=== PATIENT | female | born 1950 | race African-American/Black ===

== ENCOUNTER 2019-07-11 12:24 | Emergency (ER) | payer OTHER ==
--- NOTE | 2019-07-11 13:53 | ER Document Report ---
ED Medical Screen (RME) - General Chief Complaint: Abdominal Pain Stated Complaint: ABDOMINAL PAIN Time Seen by Provider: 07/11/19 13:51 Notes: 69-year-old female presents with loose stools and abdominal pain since May 12. Patient states she has not been seen for this yet. Patient states the pain is worse when she eats something and is relieved when she has a bowel movement. Patient denies any recent antibiotic use or travel overseas. Patient denies any blood in her stools. Abdomen soft nontender. Patient denies any fevers, nausea/vomiting, chest pain, shortness of breath. I have greeted and performed a rapid initial assessment of this patient. A comprehensive ED assessment and evaluation of the patient, analysis of test results and completion of the medical decision making process with be conducted by additional ED providers.
[2019-07-11 15:20] LABS: ABSOLUTE EOSINOPHILS # (AUTO) 0.1 10^3/uL (0.0-0.6); ABSOLUTE LYMPHOCYTES (AUTO) 1.2 10^3/uL (0.5-4.7); ABSOLUTE MONOCYTES (AUTO) 0.8 10^3/uL (0.1-1.4); ABSOLUTE NEUT (AUTO) 4.2 10^3/uL (1.7-8.2); BASOPHILS % (AUTO) 0.7 % (0-2); EOSINOPHILS % (AUTO) 1.7 % (0-6); HEMATOCRIT 40.5 % (36.0-47.0); HEMOGLOBIN 13.7 g/dL (12.0-15.5); LYMPHOCYTES % (AUTO) 18.7 % (13-45); MEAN CORPUSCULAR HEMOGLOBIN 26.3 pg (27.0-33.4); MEAN CORPUSCULAR HGB CONC 33.8 g/dL (32.0-36.0); MEAN CORPUSCULAR VOLUME 78 fl (80-97); MONOCYTES % (AUTO) 12.1 % (3-13); PLATELET COUNT 192 10^3/uL (150-450); RED BLOOD COUNT 5.22 10^6/uL (3.72-5.28); RED CELL DISTRIBUTION WIDTH 14.7 % (11.5-14.0); SEGMENTED NEUTROPHILS % (AUTO) 66.8 % (42-78); TOTAL CELLS COUNTED % (AUTO) 100 %; WHITE BLOOD COUNT 6.4 10^3/uL (4.0-10.5)
[2019-07-11 15:33] LABS: ALKALINE PHOSPHATASE 56 U/L (38-126); ANION GAP 9 (5-19); ASPARTATE AMINO TRANSFERASE 32 U/L (14-36); BILIRUBIN,DIRECT 0.2 mg/dL (0.0-0.4); BILIRUBIN,TOTAL 0.3 mg/dL (0.2-1.3); BLOOD UREA NITROGEN 11 mg/dL (7-20); CALCIUM 9.4 mg/dL (8.4-10.2); CARBON DIOXIDE 27 mmol/L (22-30); CHLORIDE 105 mmol/L (98-107); GLUCOSE 130 mg/dL (75-110); POTASSIUM 3.6 mmol/L (3.6-5.0); TOTAL PROTEIN 7.2 g/dL (6.3-8.2)
--- NOTE | 2019-07-11 16:05 | ER Document Report ---
ED GI/ - General Chief Complaint: Abdominal Pain Stated Complaint: ABDOMINAL PAIN Time Seen by Provider: 07/11/19 13:51 Primary Care Provider: POLA,ROBYN [Primary Care Provider] - Follow up as needed Notes: HPI: Patient is a 69-year-old female with past medical history as recorded who presents today stating starting May 12 she has had some epigastric intermittent "fullness". She states it is worse with food. She denies any radiation to the back of the chest. She denies any lower abdominal pain or dysuria. Patient states 1 every 3 days she has an episode of diarrhea. She denies any darkness or blackness to the stool. She denies any nausea, vomiting, fevers, cough, shortness of breath. No other aggravating relieving factors. ROS: See HPI All other review of systems reviewed and otherwise negative Reviewed vital signs and nursing note as charted by RN. PHYSICAL EXAM: CONSTITUTIONAL: Alert and oriented and responds appropriately to questions. Well-appearing; well-nourished HEAD: Normocephalic; atraumatic EYES: Sclerae non-icteric ENT: Normal nose; no rhinorrhea; moist mucous membranes; pharynx without lesions noted NECK: Supple without meningismus; non-tender; no cervical lymphadenopathy, no masses CARD: Regular rate and rhythm; no murmurs; symmetric distal pulses RESP: Normal chest excursion without splinting or tachypnea; breath sounds clear and equal bilaterally ABD/GI: Normal bowel sounds; non-distended; mild tenderness to the epigastric region without rebound or guarding. Negative Ambrose sign. No lower abdominal tenderness or swelling. No abdominal bruits BACK: The back appears normal and is non-tender to palpation EXT: Normal ROM in all joints; non-tender to palpation; no edema SKIN: No acute lesions noted NEURO: CN 2-12 intact; 5/5 bilateral upper and lower extremity strength with sensation intact to light touch PSYCH: The patient's mood and manner are appropriate. Grooming and personal hygiene are appropriate. TRAVEL OUTSIDE OF THE [place] IN LAST 30 DAYS: No - Related Data Allergies/Adverse Reactions: seafood Allergy (Uncoded 07/11/19 19:20) Home Medications: Novalog, Lantus, Janovia, Glipiside, Benazapril, Amalodipine Past Medical History - Social History Smoking Status: Former Smoker Family History: Reviewed & Not Pertinent Patient has suicidal ideation: No Patient has homicidal ideation: No - Past Medical History Cardiac Medical History: Reports: Hx Hypercholesterolemia, Hx Hypertension Endocrine Medical History: Reports: Hx Diabetes Mellitus Type 2 Past Surgical History: Reports: Hx Breast Surgery - Left breast Lymphectomy, Masectomy, Hx Section, Hx Mastectomy - left breast Physical Exam - Vital signs Vitals: Temp Pulse Resp BP Pulse Ox 98.1 F 64 16 154/86 H 97 07/11/19 12:55 07/11/19 12:55 07/11/19 12:55 07/11/19 12:55 07/11/19 12:55 Course - Re-evaluation Re-evalutation: EKG shows heart of 54, normal sinus rhythm, right bundle branch block with left ventricular hypertrophy. Inverted T waves in leads III, aVF, V3 through V6 Given the above history and physical we will proceed with basic labs, liver panel and lipase, and given the upper abdominal nature of this pain for such a prolonged period of time associated with food, we will proceed with an ultrasound of the gallbladder. Given the patient's age I will order an EKG to evaluate for cardiac etiology. 07/11/19 16:02 Labs as recorded. We are waiting ultrasound 07/11/19 18:13 Ultrasound as recorded. No change in exam. Patient is demanding some juice as she states her glucose will drop. I have explained to the patient that we want to keep the patient without food or water until we know the etiology of the patient's pain. She is demanding juice. 07/11/19 19:[address] scan of the abdomen and pelvis as recorded. Patient is pain-free sitting up reading a book. I have explained to the patient that I would request that the patient possibly be admitted for further evaluation with possibly urology consultation. I have offered transfer to [facility] given that the patient does not have a urologist. I am unsure the etiology of this hydronephrosis. No obvious strictures. Lipase is slightly elevated. Patient has minimal indication for urinary tract infection but given the hydronephrosis we will treat this. Urine culture has been sent. Patient is refusing admission or transfer at this time. She states she wants to follow-up with her primary care physician. She understands the seriousness of the condition. She understands the importance of strict follow-up. She understands importance of returning with any worsening pain or vomiting. Patient states she has an appointment tomorrow with her primary care physician. I have provided the information so that she can tell her provider. She understands the importance of follow-up and she understands that we are happy to have her return at any time that she would like for further evaluation. - Vital Signs Vital signs: Temp Pulse Resp BP Pulse Ox 98.1 F 64 16 154/86 H 97 07/11/19 12:55 07/11/19 12:55 07/11/19 12:55 07/11/19 12:55 07/11/19 12:55 - Laboratory Result Diagrams: 07/11/19 14:50 07/11/19 14:50 Laboratory results interpreted by me: 07/11/19 07/11/19 07/11/19 14:50 14:50 15:35 MCV 78 L MCH 26.3 L RDW 14.7 H Glucose 130 H Lipase 339.1 H Leukocyte Esterase Rfl TRACE H Discharge - Discharge Clinical Impression: Hydronephrosis determined by ultrasound, Elevated lipase UTI (urinary tract infection) Qualifiers: Urinary tract infection type: site unspecified Hematuria presence: without hematuria Qualified Code(s): N39.0 - Urinary tract infection, site not specified Condition: Good Disposition: HOME, SELF-CARE Additional Instructions: Come back immediately for any increased pain, change in location or quality of pain, fevers or vomiting, or any time that she would like for further treatment and assessment. It is important that you follow-up with the primary care physician for your slightly elevated lipase, your urine analysis and urine culture results, and the dilated ureter and kidney on the right side. I have provided the CT scan reports to you. Please take the antibiotics as prescribed and I would also recommend you taking Prilosec once daily until seen and reassess. Prescriptions: RX: Cephalexin Monohydrate [Keflex 500 mg Capsule] 500 mg PO TID 10 Days #30 capsule Referrals: [facility] [Primary [facility]] - Follow up as needed
[2019-07-11 16:11] LABS: APPEARANCE,URINE CLEAR; BILIRUBIN,URINE NEGATIVE (NEGATIVE); COLOR,URINE YELLOW; GLUCOSE, URINE NEGATIVE (NEGATIVE); KETONES,URINE NEGATIVE (NEGATIVE); PROTEIN,URINE NEGATIVE (NEGATIVE); URINE SPECIFIC GRAVITY 1.015; UROBILINOGEN,URINE NEGATIVE mg/dL (<2.0)
--- NOTE | 2019-07-11 18:11 | RADIOLOGY REPORT (SQ) ---
EXAM DESCRIPTION: U/S ABDOMEN LIMITED W/O DOP COMPLETED DATE/TIME: 07/11/2019 5:36 pm REASON FOR STUDY: 21; epigastric pain worse with food COMPARISON: None. TECHNIQUE: Dynamic and static grayscale images acquired of the abdomen and recorded on PACS. Additio nal selected color Doppler and spectral images recorded. LIMITATIONS: None. FINDINGS: PANCREAS: No masses. Visualized pancreatic duct normal caliber. LIVER: No masses. Echotexture increased consistent with fatty infiltration. LIVER VASCULATURE: Normal directional flow of the main portal vein and hepatic veins. GALLBLADDER: No stones. Normal wall thickness. No pericholecystic fluid. ULTRASOUND-DETECTED LOMLEI'S SIGN: Negative. INTRAHEPATIC DUCTS AND COMMON DUCT: CBD and intrahepatic ducts normal caliber. No filling defects. INFERIOR VENA CAVA: Normal flow. AORTA: No aneurysm identified. RIGHT KIDNEY: Normal size. Normal echogenicity. No solid or suspicious masses. Mild -moderate right hydronephrosis. No calcifications. PERITONEAL AND RIGHT PLEURAL SPACE: No ascites or effusions. OTHER: No other significant findings. IMPRESSION: Mild -moderate right hydronephrosis. Fatty infiltration of the liver. No acute inflam matory changes of the gallbladder. TECHNICAL DOCUMENTATION: JOB ID: [id number] [place]-72 2010 [employer]- All Rights Reserved Reading location - IP/workstation name: [email or web address]
--- NOTE | 2019-07-11 19:15 | RADIOLOGY REPORT (SQ) ---
EXAM DESCRIPTION: CT ABD/PELVIS NO ORAL OR IV COMPLETED DATE/TIME: 07/11/2019 6:41 pm REASON FOR STUDY: 21; abdominal pain; hydro on U/S COMPARISON: Ultrasound TECHNIQUE: CT scan of the abdomen and pelvis performed without intravenous or oral contrast. Images reviewed with lung, soft tissue, and bone windows. Reconstructed coronal and sagittal MPR images revi ewed. All images stored on PACS. All CT scanners at this facility use dose modulation, iterative reconstruction, and/or weight based d osing when appropriate to reduce radiation dose to as low as reasonably achievable (ALARA). [facility]: Dose Right [facility]: CareDose [facility]: Dose Right [facility]: Teradose 4D [facility]: [employer] RADIATION DOSE: CT Rad equipment meets quality standard of care and radiation dose reduction techniq ues were employed. CTDIvol: 7.1 mGy. DLP: 364 mGy-cm.mGy. LIMITATIONS: None. FINDINGS: LOWER CHEST: No significant findings. No nodules or infiltrates. NON-CONTRASTED LIVER, SPLEEN, ADRENALS: Evaluation limited by lack of IV contrast. No identified sign ificant masses. PANCREAS: No masses. No peripancreatic inflammatory changes. GALLBLADDER: No identified stones by CT criteria. No inflammatory changes to suggest cholecystitis. RIGHT KIDNEY AND URETER: No suspicious masses. Assessment limited by lack of IV contrast. No signif icant calcifications. Mild hydronephrosis hydroureter. Etiology not determined. LEFT KIDNEY AND URETER: No suspicious masses. Assessment limited by lack of IV contrast. No signifi cant calcifications. No hydronephrosis or hydroureter. AORTA AND RETROPERITONEUM: No aneurysm. No retroperitoneal masses or adenopathy. BOWEL AND PERITONEAL CAVITY: No obvious masses or inflammatory changes. No free fluid. APPENDIX: Normal. PELVIS, BLADDER, AND ABDOMINAL WALL:Multiple calcifications in uterus likely fibroids. Bladder unrem arkable. Periumbilical hernia containing in an nonobstructive bowel loop. BONES: No significant findings. OTHER: No other significant finding. IMPRESSION: Mild hydronephrosis and hydroureter on the right without determined etiology. Periumbilical hernia containing and nonobstructed bowel loop. COMMENT: Quality ID # 436: Final reports with documentation of one or more dose reduction techniques (e.g., Automated exposure control, adjustment of the mA and/or kV according to patient size, use of iterative reconstruction technique) TECHNICAL DOCUMENTATION: JOB ID: [id number] 2010 [employer]- All Rights Reserved Reading location - IP/workstation name: [email or web address]
[2019-07-11] MEDS ORDERED: CEPHALEXIN 500 MG CAPSULE PO ONE (19:16)
[2019-07-11] MEDS ORDERED: MAG HYDROX/AL HYDROX/SIMETH SUSP 30 ML UDCUP PO ONE (19:28)
[2019-07-11] MEDS ORDERED: METOCLOPRAMIDE HCL ORAL SOLN 10 MG/10 ML UDCUP PO ONE (19:28)
[2019-07-11] MEDS ORDERED: LIDOCAINE 2% VISCOUS SOLN 15 ML UDCUP PO ONE (19:28)
[2019-07-11 19:42] VITALS: BP 198/77
--- NOTE | 2019-07-12 07:12 | EKG REPORT ---
SEVERITY:- ABNORMAL ECG - SINUS RHYTHM RIGHT BUNDLE BRANCH BLOCK LEFT VENTRICULAR HYPERTROPHY : Confirmed by: Santo Rowell MD 12-Jul-2019 07:11:39
== END 2019-07-11 19:43 | disposition home or self-care (01) ==
LOC: ER 12:24
DX: N39.0 Urinary tract infection, site not specified (principal); N13.30 Unspecified hydronephrosis; R79.89 Other specified abnormal findings of blood chemistry; R10.13 Epigastric pain; R19.7 Diarrhea, unspecified; E78.00 Pure hypercholesterolemia, unspecified; I10 Essential (primary) hypertension; E11.9 Type 2 diabetes mellitus without complications
CPT/HCPCS: 93005; 99284; 36415; 87086; 82962; 83690; 85025; 87088; 80053; 81001; 87186; 76705; 74176; 93010; J3490

== ENCOUNTER → 2020-01-24 | Outpatient (CLI) | payer OTHER ==
--- NOTE | 2020-01-25 10:42 | RADIOLOGY REPORT (SQ) ---
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 TECHNIQUE: Blood glucose level was verified. Above dose of FDG was injected intravenously. 2-D seg mented attenuation correction images were obtained from the base of the skull to the midthighs. Nonc ontrast CT images were obtained for attenuation correction and fusion with emission images. CT image s were performed without oral or intravenous contrast and are not sensitive for parenchymal lesions. A series of overlapping emission PET images were obtained. Images reviewed and manipulated at [facility] work station by the radiologist. Images stored on PACS. LIMITATIONS: None. FINDINGS: HEAD AND NECK: There is uptake in the right lobe of the thyroid gland. CT images demonstr ate a hypoattenuating nodule. SUV is 3.0. Recommend correlation with ultrasound. CHEST: No areas of abnormal metabolic activity in the chest. ABDOMEN AND PELVIS: No areas of abnormal metabolic activity in the abdomen or pelvis. Expected physi ologic activity is present in the genitourinary system and bowel. PROXIMAL LOWER EXTREMITIES: No areas of abnormal metabolic activity in the soft tissues of the lower extremities. BONES: Increased uptake in the right posterolateral 6th rib. CT images demonstrate sclerotic changes . Findings are suspicious for metastatic disease. SUV is 2.7. ADDITIONAL CT FINDINGS: Prior left mastectomy. Moderate stool throughout the colon. OTHER: No other significant findings. IMPRESSION: 1. Abnormal uptake in the right lobe of the thyroid gland. CT images demonstrate a hypo attenuating nodule. SUV is 3.0. Correlation with ultrasound is recommended. 2. Linear increased metabolic activity in the 6th right posterolateral rib. SUV is 2.7. Bony metas tatic disease is suspected. TECHNICAL DOCUMENTATION: JOB ID: [id number] 2010 [employer]- All Rights Reserved Reading location - IP/workstation name: [email or web address]
== END ==
LOC: RAD 10:19
PROVIDERS: ATTEND Internal Medicine
DX: C50.412 Malignant neoplasm of upper-outer quadrant of left female breast (principal)
CPT/HCPCS: 78815; A9552

== ENCOUNTER → 2020-06-08 | Outpatient (CLI) | payer OTHER ==
--- NOTE | 2020-06-08 10:17 | RADIOLOGY REPORT (SQ) ---
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 Patient was gi caren oral contrast. Images reviewed with lung, soft tissue, and bone windows. Reconstructed coronal an d sagittal MPR images reviewed. All images stored on PACS. All CT scanners at this facility use dose modulation, iterative reconstruction, and/or weight based d osing when appropriate to reduce radiation dose to as low as reasonably achievable (ALARA). [facility]: Dose Right [facility]: CareDose [facility]: Dose Right [facility]: Teradose 4D [facility]: Smart [employer] RADIATION DOSE: CT Rad equipment meets quality standard of care and radiation dose reduction techniq ues were employed. CTDIvol: 4.6 - 6.2 mGy. DLP: 444 mGy-cm.mGy. LIMITATIONS: None. FINDINGS: LOWER CHEST: See separate report of the CT of the chest. NON-CONTRASTED LIVER, SPLEEN, ADRENALS: Evaluation limited by lack of IV contrast. No identified sign ificant masses. PANCREAS: No masses. No peripancreatic inflammatory changes. GALLBLADDER: No identified stones by CT criteria. No inflammatory changes to suggest cholecystitis. RIGHT KIDNEY AND URETER: No suspicious masses. Assessment limited by lack of IV contrast. No signif icant calcifications. Decreased fullness of the renal collecting system from prior. No hydroureter onephrosis. LEFT KIDNEY AND URETER: No suspicious masses. Assessment limited by lack of IV contrast. No signifi cant calcifications. No hydronephrosis or hydroureter. AORTA AND RETROPERITONEUM: Aortoiliac atherosclerosis without aneurysm. No retroperitoneal masses or adenopathy. BOWEL AND PERITONEAL CAVITY: No obvious masses or inflammatory changes. No free fluid. APPENDIX: Not visualized. PELVIS, BLADDER, AND ABDOMINAL WALL:Decompressed urinary bladder. Bilateral adnexal masses, likely o varian and larger than expected for patient age. Right side measures 4.3 x 3.8 cm. Evaluation limit ed without intravenous contrast. No pelvic free fluid or adenopathy. Small fat containing periumbil ical hernia. BONES: No acute bony abnormality. No suspicious lytic or blastic osseous lesions. Minimal lower lum bar facet arthropathy. Sclerosis at the right SI joint. OTHER: No other significant finding. IMPRESSION: 1. Decreased fullness of the right renal collecting system from the prior exam. No sig nificant hydroureteronephrosis. 2. Ovaries are larger than expected for patient age and incompletely characterized. Consider pelvic ultrasound for more complete characterization. 3. No other evidence of acute intra-abdominal/pelvic process. COMMENT: Quality ID # 436: Final reports with documentation of one or more dose reduction techniques (e.g., Automated exposure control, adjustment of the mA and/or kV according to patient size, use of iterative reconstruction technique) TECHNICAL DOCUMENTATION: JOB ID: [id number] 2010 [employer]- All Rights Reserved Reading location - IP/workstation name: [email or web address]
--- NOTE | 2020-06-08 11:03 | RADIOLOGY REPORT (SQ) ---
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 Images reviewed with lung, soft tissue and bone windows. Reconstructed coronal and sagittal MPR images reviewed. All images st ored on PACS. All CT scanners at this facility use dose modulation, iterative reconstruction, and/or weight based d osing when appropriate to reduce radiation dose to as low as reasonably achievable (ALARA). [facility]: Dose Right [facility]: CareDose [facility]: Dose Right [facility]: Teradose 4D [facility]: [employer] RADIATION DOSE: mGy. LIMITATIONS: No technical limitations. FINDINGS: LUNGS AND PLEURA: No focal consolidation, pleural effusion or pneumothorax. Mild scarring and pleural thickening along the anterior left upper lobe, likely treatment related. No discrete pa renchymal nodules or masses. HILAR AND MEDIASTINAL STRUCTURES: No identified masses or abnormal nodes. No obvious aneurysm. HEART AND VASCULAR STRUCTURES: Normal heart size. No aneurysm. No pericardial effusion. Scattered coronary atherosclerosis. UPPER ABDOMEN: See separate report of the CT of the abdomen. THYROID AND OTHER SOFT TISSUES: Enlarged heterogeneous right thyroid lobe partially evaluated hypoden se nodule. Postsurgical changes from prior left mastectomy and axillary node dissection. Stable par tially calcified soft tissue nodules in the right breast and right hilar nodes. BONES: Stable mixed lytic sclerotic lesion at the inferior T6 vertebral body. Stable lucent lesion w ith sclerotic anterior margin involving the T4 vertebral body. Patchy sclerosis within the posterola teral 6th vertebral body, corresponding to areas of increased uptake on prior PET-CT and similar in a ppearance. HARDWARE: None in the chest. OTHER: No other significant findings. IMPRESSION: 1. No evidence of new intrathoracic disease. 2. Stable appearance of the T4, T6 vertebral bodies and right posterior 6 ribs suggestive of osseous metastatic disease. 3. Enlarged right thyroid lobe with hypodense nodule, partially evaluated. Recommend ultrasound if not previously performed. TECHNICAL DOCUMENTATION: JOB ID: [id number] Quality ID # [id number]: Final reports with documentation of one or more dose reduction techniques (e.g., Au tomated exposure control, adjustment of the mA and/or kV according to patient size, use of iterative reconstruction technique) 2010 [employer]- All Rights Reserved Reading location - IP/workstation name: [email or web address]
== END ==
LOC: RAD 09:40
PROVIDERS: ATTEND Internal Medicine
DX: C50.412 Malignant neoplasm of upper-outer quadrant of left female breast (principal); E04.1 Nontoxic single thyroid nodule
CPT/HCPCS: 71250; 74176